=== PATIENT | male | born 1985 | race Caucasian/White ===

== ENCOUNTER 2023-01-04 02:34 | Emergency (ER) | payer SELFPAY ==
[~2023-01-04] VITALS: Ht 170.2 cm; Wt 74.8 kg
[2023-01-04 02:45] VITALS: BP_SYST 126
--- NOTE | 2023-01-04 03:00 | NUR ---
NARCISO [place] at bedside examining patient.
--- NOTE | 2023-01-04 03:10 | NUR ---
Pt BIB PD for medical clearance AOX4 VSS Able to make needs known Will continue to monitor
--- NOTE | 2023-01-04 03:29 | NUR ---
Patient given written and verbal discharge instructions and verbalizes understanding. ER MD discussed with patient the results and treatment provided. Patient in stable condition. ID arm band removed. Patient educated on pain management and to follow up with PMD. Pain Scale 0. Opportunity for questions provided and answered. Medication side effect fact sheet provided.
== END 2023-01-04 03:27 ==
LOC: SED 02:34
DX: Z04.1 Encounter for examination and observation following transport accident (principal); Z79.899 Other long term (current) drug therapy
CPT/HCPCS: 99283